=== PATIENT | female | born 1950 | race Two or more races ===

== ENCOUNTER 2018-12-15 01:04 | Inpatient (IN) | payer OTHER, MEDICARE ==
[~2018-12-15] VITALS: Ht 170.2 cm; Wt 60.0 kg
[2018-12-15 03:21] VITALS: BP 133/67
[2018-12-15] MEDS ORDERED: ONDANSETRON 2MG/ML, 2ML IVPush PRN (04:00)
[2018-12-15] MEDS ORDERED: ACETAMINOPHEN 325 MG TABLET PO PRN (04:00)
[2018-12-15] MEDS ORDERED: morphine SULFATE 10 MG/ML, 1ML IVPush PRN (04:00)
[2018-12-15] MEDS: DEXAMETHASONE 4 MG/ML, 1ML IVPush SCH ×4 (04:18→21:20)
[2018-12-15] MEDS: PROPRANOLOL 60 MG TABLET PO SCH ×4 (04:18→21:20)
[2018-12-15] MEDS: ENOXAPARIN 40 MG/0.4 ML SQ SCH (04:24)
[2018-12-15] MEDS ORDERED: THIAMINE 200 MG in SODIUM CHLORIDE 0.9% 50 ML IV ONE (04:30)
[2018-12-15 05:55] LABS: BASOPHILS # (AUTO) 0.02 x10^3/uL (0-0.1); BASOPHILS % (AUTO) 0 % (0-1); EOSINOPHILS # (AUTO) 0.11 x10^3/uL (0-0.4); EOSINOPHILS % (AUTO) 2 % (1-7); LYMPHOCYTES % (AUTO) 30 % (22-44); MD NO; MEAN CORPUSCULAR HEMOGLOBIN 28.8 pg (27.0-34.8); MEAN CORPUSCULAR HGB CONC 32.8 g/dL (32.4-35.8); MEAN CORPUSCULAR VOLUME 87.8 fL (80-100); MEAN PLATELET VOLUME 7.7 fL (7.4-10.4); MONOCYTES # (AUTO) 0.31 x10^3/uL (0.2-0.8); MONOCYTES % (AUTO) 6 % (2-9); NEUTROPHILS # (AUTO) 3.05 x10^3/uL (1.8-6.8); NEUTROPHILS % (AUTO) 61 % (42-75); PLATELET COUNT 230 x10^3/uL (130-400); RED BLOOD COUNT 3.75 x10^6/uL (3.82-5.3); RED CELL DISTRIBUTION WIDTH 13.1 % (9.6-15.2)
[2018-12-15 06:07] LABS: ALBUMIN 2.6 g/dL (3.4-5.0); ANION GAP 7 mmol/L (5-15); CALCIUM 8.6 mg/dL (8.5-10.1); CHLORIDE 116 mmol/L (98-107)
[2018-12-15 06:10] LABS: ALANINE AMINOTRANSFERASE 31 U/L (12-78); BILIRUBIN,TOTAL 0.5 mg/dL (0.2-1.0); CREATININE 0.43 mg/dL (0.55-1.02); TOTAL PROTEIN 5.6 g/dL (6.4-8.2); TROPONIN I 0.159 ng/mL (0.000-0.045)
[2018-12-15 06:17] LABS: ALKALINE PHOSPHATASE 94 U/L (45-117); FREE T4 (FREE THYROXINE) 6.73 ng/dL (0.76-1.46); THYROID STIMULATING HORMONE < 0.005 mIU/L (0.358-3.740)
[2018-12-15 08:26] VITALS: BP 149/73
[2018-12-15] MEDS: METHIMAZOLE 5 MG TAB PO SCH (09:16)
[2018-12-15 10:07] LABS: TROPONIN I 0.163 ng/mL (0.000-0.045)
[2018-12-15 13:10] LABS: CHOL/HDL RATIO 2.8; LDL/HDL RATIO 1.6 (0.5-3.0)
[2018-12-15 13:23] LABS: HEMOGLOBIN A1C 5.1 % (4.2-6.3)
[2018-12-15] MEDS ORDERED: PROPRANOLOL 10 MG TABLET ONE (14:38)
[2018-12-15] MEDS ORDERED: PROPRANOLOL 40 MG TABLET ONE (14:39)
[2018-12-15 14:58] VITALS: BP 143/69
[2018-12-15 19:57] VITALS: BP 135/72
[2018-12-16 03:48] VITALS: BP 132/52
[2018-12-16] MEDS: ENOXAPARIN 40 MG/0.4 ML SQ SCH (04:24)
[2018-12-16] MEDS ORDERED: LIDOCAINE JELLY 2%, 30GM TP ONE (05:00)
[2018-12-16] MEDS: DEXAMETHASONE 4 MG/ML, 1ML IVPush SCH (05:35)
[2018-12-16 05:53] VITALS: BP 155/79
[2018-12-16] MEDS: PROPRANOLOL 60 MG TABLET PO SCH (05:55)
[2018-12-16 06:40] LABS: BASOPHILS # (AUTO) 0.04 x10^3/uL (0-0.1); BASOPHILS % (AUTO) 0 % (0-1); EOSINOPHILS % (AUTO) 0 % (1-7); LYMPHOCYTES # (AUTO) 1.24 x10^3/uL (1-3.4); LYMPHOCYTES % (AUTO) 12 % (22-44); MD NO; MEAN CORPUSCULAR HEMOGLOBIN 28.8 pg (27.0-34.8); MEAN CORPUSCULAR HGB CONC 32.3 g/dL (32.4-35.8); MONOCYTES # (AUTO) 0.41 x10^3/uL (0.2-0.8); MONOCYTES % (AUTO) 4 % (2-9); NEUTROPHILS # (AUTO) 8.83 x10^3/uL (1.8-6.8); NEUTROPHILS % (AUTO) 84 % (42-75); PLATELET COUNT 290 x10^3/uL (130-400); RED BLOOD COUNT 4.04 x10^6/uL (3.82-5.3); RED CELL DISTRIBUTION WIDTH 13.2 % (9.6-15.2)
[2018-12-16 06:46] LABS: ANION GAP 8 mmol/L (5-15); CALCIUM 8.8 mg/dL (8.5-10.1); CHLORIDE 113 mmol/L (98-107); CHOLESTEROL, TOTAL 135 mg/dL (140-239); CREATININE 0.52 mg/dL (0.55-1.02); TRIGLYCERIDES 64 mg/dL (50-200); VLDL CHOLESTEROL 13 mg/dL (0-25)
[2018-12-16 06:48] LABS: CHOL/HDL RATIO 2.6; HDL CHOL % 39 % (28-40); HDL CHOLESTEROL (DIRECT) 52 mg/dL (40-60); LDL CHOLESTEROL,CALCULATED 70 mg/dL (54-169); LDL/HDL RATIO 1.3 (0.5-3.0)
[2018-12-16 07:36] LABS: TROPONIN I 0.141 ng/mL (0.000-0.045)
[2018-12-16 07:42] VITALS: BP 167/72
[2018-12-16] MEDS ORDERED: PRED10TA PO (09:16)
[2018-12-16] MEDS ORDERED: PROP60TA PO (09:16)
[2018-12-16] MEDS ORDERED: METH5TAB6 PO (09:16)
[2018-12-16] MEDS: METHIMAZOLE 5 MG TAB PO SCH (09:55)
== END 2018-12-16 10:45 | disposition home or self-care (01) | DRG 643 ==
LOC: 5SO 02:59 → DCLOUNGE 12-16 10:25
PROVIDERS: ADMIT Family Medicine; ATTEND Family Medicine
DX: E05.00 Thyrotoxicosis with diffuse goiter without thyrotoxic crisis or storm (principal); I21.A1 Myocardial infarction type 2; E44.0 Moderate protein-calorie malnutrition; I50.83 High output heart failure; E03.9 Hypothyroidism, unspecified; Z96.651 Presence of right artificial knee joint; D64.9 Anemia, unspecified; Z88.6 Allergy status to analgesic agent; Z79.899 Other long term (current) drug therapy; Z98.82 Breast implant status; Z83.3 Family history of diabetes mellitus; Z82.49 Family history of ischemic heart disease and other diseases of the circulatory system; Z68.20 Body mass index [BMI] 20.0-20.9, adult
CPT/HCPCS: 36415; 80048; 80053; 80061; 83036; 83520; 83735; 84100; 84439; 84443; 84481; 84484; 85025; 93306; G0378; J1100; J1650; J3411